=== PATIENT | male | born 1975 | race Two or more races ===

== ENCOUNTER 2021-03-14 15:52 | Emergency (ER) | payer OTHER, MEDICAID ==
[~2021-03-14] VITALS: Ht 167.6 cm; Wt 89.8 kg
[~2021-03-14 15:52] MED LIST: DALF10TA PO; ERGO1CAP6 PO; GLAT20KI SC; [UNRECOGNIZED DRUG - CODE] PO
[2021-03-14 15:59] VITALS: BP 121/88
[2021-03-14] MEDS ORDERED: IBUPROFEN 800 MG TAB PO ONE (17:15)
== END 2021-03-14 17:29 | disposition home or self-care (01) ==
LOC: ER 15:52
DX: S00.83XA Contusion of other part of head, initial encounter (principal); W18.39XA Other fall on same level, initial encounter; Y93.89 Activity, other specified; Y92.89 Other specified places as the place of occurrence of the external cause; Y99.8 Other external cause status
CPT/HCPCS: 70450